=== PATIENT | male | born 1980 | race Caucasian/White ===

== ENCOUNTER 2018-08-03 12:14 | Emergency (ER) | payer BC, OTHER ==
[~2018-08-03] VITALS: Ht 175.3 cm; Wt 90.7 kg
--- NOTE | 2018-08-03 12:14 | NUR ---
PT MATTHIAS BLS TO ER BED 05
--- NOTE | 2018-08-03 12:20 | NUR ---
37 YO M BIBA WITH CHIEF C/O SEVERE BACK PAIN RADIATING TO RLE. PER PT HE SUFFERS FROM SCIATICA NERVE PAIN AND DENIES ANY INJURY. CONNECTED TO MONITOR. WAITING FOR MD EVALUATION.
[2018-08-03 12:31] VITALS: BP 143/88
[2018-08-03] MEDS ORDERED: KETOROLAC 30 MG/ML VIAL IM ONE (13:00)
[2018-08-03] MEDS ORDERED: HYDROcodone/APAP 5/325 MG 1 TAB TAB PO ONE (13:00)
[2018-08-03] MEDS ORDERED: DIAZEPAM 5 MG TAB PO ONE (13:00)
[2018-08-03] MEDS ORDERED: MORPHINE SULFATE 4 MG/ML SYR IVP ONE ×2 (13:45→16:20)
--- NOTE | 2018-08-03 14:44 | NUR ---
LAB AT BEDSIDE
--- NOTE | 2018-08-03 14:49 | NUR ---
CONSENT FORM SIGNED BY PATIENT AND PHYSICIAN
[2018-08-03 15:02] LABS: ANION GAP 10.2 (8-16); CARBON DIOXIDE 28.6 mmol/L (21-32); CREATININE 0.9 mg/dL (0.7-1.3); POTASSIUM 3.8 mmol/L (3.5-5.1)
--- NOTE | 2018-08-03 15:20 | NUR ---
PT TO CT AT THIS TIME
[2018-08-03] MEDS ORDERED: KETOROLAC 30 MG/ML VIAL IVP ONE (16:20)
[2018-08-03] MEDS ORDERED: ONDANSETRON 4 MG/2 ML VIAL IVP ONE (16:20)
[2018-08-03 17:42] VITALS: BP 132/82
--- NOTE | 2018-08-03 17:42 | NUR ---
Patient discharged with v/s stable. Written and verbal after care instructions given and explained. Patient alert, oriented and verbalized understanding of instructions. Ambulatory with steady gait. All questions addressed prior to discharge. ID band removed. Patient advised to follow up with PMD. Rx of Narcan and [place] given. Patient educated on indication of medication including possible reaction and side effects. Opportunity to ask questions provided and answered.
== END 2018-08-03 17:42 | disposition home or self-care (01) ==
LOC: MED 12:14
DX: M54.5 Low back pain (principal); M25.561 Pain in right knee
CPT/HCPCS: 36415; 72132; 80048; 81002; 96372; 96374; 96375; 96376; 99284; J1885; J2270; J2405; Q9967